=== PATIENT | female | born 1955 | race African-American/Black ===

== ENCOUNTER 2021-08-09 12:12 | Emergency (ER) | payer OTHER, MEDICAID ==
[~2021-08-09] VITALS: Ht 172.7 cm; Wt 73.0 kg
[2021-08-09 12:24] VITALS: BP 152/91
[2021-08-09 13:25] LABS: CHLORIDE 110 mEq/L (98-107)
[2021-08-09 13:26] LABS: BASOPHILS % 1.3 % (0.0-2.0); EOSINOPHILS % 1.1 % (0.0-5.0); HEMATOCRIT. 42.5 % (36.0-48.0); HEMOGLOBIN. 13.9 g/dL (12.0-16.0); LYMPHOCYTES % 38.7 % (20.0-50.0); MEAN CORPUSCULAR HEMOGLOBIN 26.6 pg (28.0-32.0); MEAN CORPUSCULAR VOLUME 81.2 fL (81.0-99.0); MEAN PLATELET VOLUME 8.9 fl (7.4-10.4); MONOCYTES % 5.4 % (2.0-8.0); NEUTROPHILS % 53.5 % (40.0-76.0); PLATELET 215 x1000/uL (130-400); RED BLOOD CELL COUNT 5.23 mill/uL (4.2-5.4); RED CELL DISTRIBUTION WIDTH 17.1 % (11.6-14.6)
[2021-08-09 13:31] LABS: ETHANOL BLOOD < 10 mg/dL
== END 2021-08-09 19:46 | disposition left against medical advice (07) ==
LOC: ER 12:12
DX: R51.9 Headache, unspecified (principal); R42 Dizziness and giddiness; I10 Essential (primary) hypertension
CPT/HCPCS: 36415; 80048; 80320; 85025; 99283; G0480

== ENCOUNTER 2022-11-09 20:51 | Inpatient (IN) | payer OTHER, MEDICAID ==
[~2022-11-09] VITALS: Ht 165.1 cm; Wt 71.7 kg
[2022-11-09] MEDS ORDERED: MORPHINE SULFATE 4 MG/ML CPJ (NOT FOR IM USE) IV STA (21:18)
[2022-11-10] VITALS (47 sets, daily range): BP systolic 90–168; BP diastolic 43–88; PULSE 58–85; RESP 12–20; TEMP 97.2–97.8
[2022-11-10] MEDS ORDERED: MORPHINE SULFATE 4 MG/ML CPJ (NOT FOR IM USE) IV ONE (02:15)
[2022-11-10] MEDS ORDERED: MORPHINE SULFATE 4 MG/ML CPJ (NOT FOR IM USE) IV NR (02:15)
[2022-11-10 02:43] LABS: CHLORIDE 113 mEq/L (98-107); INDEX HEMOLYSI 1 (1-3); INDEX ICTERIC 1 (1-4); INDEX LIPEMIC 1 (1-3); POTASSIUM 4.1 mEq/L (3.5-5.1); SODIUM 139 mEq/L (136-145)
[2022-11-10] MEDS ORDERED: LEVETIRACETAM 500MG PREMIX 100 ML IV ONE (02:45)
[2022-11-10 02:53] LABS: ALANINE AMINOTRANSFERASE 41 IU/L (13-61); ALBUMIN 3.2 g/dL (3.4-5.0); ASPARTATE AMINOTRANSFERASE 26 IU/L (15-37); BILIRUBIN TOTAL 0.2 mg/dL (0.1-1.0); CALCIUM 8.4 mg/dL (8.5-10.1); CARBON DIOXIDE 22 mEq/L (21-32); GLUCOSE 166 mg/dL (70-105); PROTEIN TOTAL 7.4 g/dL (6.0-8.3); TROPONIN I HIGH SENSITIVITY 7 ng/L (<54); UREA NITROGEN BLOOD 28 mg/dL (7-21)
[2022-11-10 05:36] LABS: CLARITY URINE CLOUDY (CLEAR); COLOR URINE YELLOW (YELLOW); GLUCOSE URINE NEGATIVE (NEGATIVE); KETONES URINE NEGATIVE (NEGATIVE); LEUKOCYTE ESTERASE URINE 2+ (NEGATIVE); NITRITE URINE POSITIVE (NEGATIVE); OCCULT BLOOD URINE NEGATIVE (NEGATIVE); PH URINE 7.5 (4.5-8.0); PROTEIN URINE 2+ (NEGATIVE); SPECIFIC GRAVITY URINE 1.018 (1.005-1.030)
[2022-11-10 05:37] LABS: SQUAMOUS EPITHELIAL CELL URINE NONE SEEN /lpf (RARE/1+); YEAST URINE NONE SEEN
[2022-11-10 06:14] LABS: PROTHROMBIN TIME 10.4 sec (9.6-11.0)
[2022-11-10 08:18] LABS: WBC URINE 0-2 /hpf (0-2)
[2022-11-10 08:19] LABS: BACTERIA URINE 4+; RBC URINE NONE SEEN /hpf (0-2)
[2022-11-10 08:35] LABS: BASOPHILS % 1.1 % (0.0-2.0); EOSINOPHILS % 0.3 % (0.0-5.0); HEMOGLOBIN. 10.3 g/dL (12.0-16.0); LYMPHOCYTES % 22.7 % (20.0-50.0); MEAN CORPUSCULAR HEMOGLOBIN 25.7 pg (28.0-32.0); MEAN CORPUSCULAR HGB CONC 32.1 g/dL (31.0-37.0); MEAN CORPUSCULAR VOLUME 80.1 fL (81.0-99.0); MEAN PLATELET VOLUME 8.9 fl (7.4-10.4); MONOCYTES % 7.4 % (2.0-8.0); NEUTROPHILS % 68.5 % (40.0-76.0); PLATELET 252 x1000/uL (130-400); RED CELL DISTRIBUTION WIDTH 16.1 % (11.6-14.6)
[2022-11-10 08:46] LABS: WHITE BLOOD COUNT 8.4 x1000/uL (4.5-11.0)
[2022-11-10] MEDS ORDERED: NALOXONE HCL 0.4MG/ML VIAL IV PRN (10:00)
[2022-11-10] MEDS: LEVETIRACETAM 500MG PREMIX 100 ML IV SCH ×2 (11:05→20:13)
[2022-11-10] MEDS ORDERED: CEFTRIAXONE 1GM PREMIX 50 ML IV SCH (15:15)
[2022-11-10] MEDS: HYDRALAZINE 20MG/ML VIAL IV PRN (15:41)
[2022-11-10] MEDS: AMLODIPINE 5MG TABLET PO SCH (15:41)
[2022-11-10] MEDS ORDERED: LEVOFLOXACIN 500MG PREMIX 100 ML IV NR (17:00)
[2022-11-10 17:39] LABS: HEPATITIS B SURFACE ANTIGEN NEGATIVE
[2022-11-10 18:54] LABS: *AMPHETAMINES SCREEN URINE NEGATIVE (NEGATIVE); *BARBITURATES SCREEN URINE NEGATIVE (NEGATIVE); *BENZODIAZEPINES SCREEN URINE NEGATIVE (NEGATIVE); *COCAINE SCREEN URINE NEGATIVE (NEGATIVE); CANNABINOID URINE SCREEN PRESUMTIVE POSITIVE (NEGATIVE); ECSTASY MDMA SCREEN URINE NEGATIVE (NEGATIVE); METHADONE URINE SCREEN NEGATIVE (NEGATIVE); OPIATES URINE SCREEN PRESUMTIVE POSITIVE (NEGATIVE); PHENCYCLIDINE URINE SCREEN NEGATIVE (NEGATIVE)
[2022-11-10 19:26] LABS: HEPATITIS C VIR.AB 0.11 INDEXVAL (0.00-0.80)
[2022-11-10] MEDS: MORPHINE SULFATE 2 MG/ML CPJ (NOT FOR IM USE) IV PRN (19:44)
[2022-11-11] VITALS (65 sets, daily range): BP systolic 106–154; BP diastolic 46–93; PULSE 69–94; RESP 12–20; TEMP 97.2–99.2
[2022-11-11 05:24] LABS: BASOPHILS % 0.9 % (0.0-2.0); DIFFERENTIAL COMMENT 0; EOSINOPHILS % 1.4 % (0.0-5.0); HEMATOCRIT. 29.1 % (36.0-48.0); HEMOGLOBIN. 9.6 g/dL (12.0-16.0); MEAN CORPUSCULAR HEMOGLOBIN 26.1 pg (28.0-32.0); MEAN CORPUSCULAR HGB CONC 32.9 g/dL (31.0-37.0); MEAN CORPUSCULAR VOLUME 79.2 fL (81.0-99.0); MEAN PLATELET VOLUME 9.2 fl (7.4-10.4); MONOCYTES % 7.1 % (2.0-8.0); NEUTROPHILS % 54.6 % (40.0-76.0); PLATELET 237 x1000/uL (130-400); RED BLOOD CELL COUNT 3.67 mill/uL (4.2-5.4); RED CELL DISTRIBUTION WIDTH 16.6 % (11.6-14.6); WHITE BLOOD COUNT 7.1 x1000/uL (4.5-11.0)
[2022-11-11 05:28] LABS: CHLORIDE 114 mEq/L (98-107); INDEX HEMOLYSI 1 (1-3); INDEX ICTERIC 1 (1-4); INDEX LIPEMIC 1 (1-3); POTASSIUM 3.7 mEq/L (3.5-5.1); SODIUM 141 mEq/L (136-145)
[2022-11-11 05:41] LABS: CALCIUM 8.6 mg/dL (8.5-10.1); CARBON DIOXIDE 23 mEq/L (21-32); GLUCOSE 104 mg/dL (70-105); UREA NITROGEN BLOOD 22 mg/dL (7-21)
[2022-11-11] MEDS: LEVETIRACETAM 500MG PREMIX 100 ML IV SCH ×2 (09:26→21:19)
[2022-11-11] MEDS: AMLODIPINE 5MG TABLET PO SCH (09:27)
[2022-11-11] MEDS ORDERED: CLOP-31 MT (14:56)
[2022-11-11] MEDS ORDERED: ASPI-1406 MT (14:57)
[2022-11-11] MEDS: HYDRALAZINE 20MG/ML VIAL IV PRN (15:50)
[2022-11-11] MEDS: LEVOFLOXACIN 250MG PREMIX 50 ML IV SCH (16:08)
[2022-11-11] MEDS ORDERED: ESCI10TA MT (16:56)
[2022-11-11] MEDS ORDERED: FAMO20TA8 MT (16:57)
[2022-11-11] MEDS ORDERED: LOSA50TA41 PO (16:58)
[2022-11-11] MEDS ORDERED: ATOR-2 MT (17:01)
[2022-11-11] MEDS ORDERED: LORA10CA MT (17:03)
[2022-11-11] MEDS ORDERED: ACETAMINOPHEN 325MG TABLET PO PRN (17:15)
[2022-11-12] VITALS (7 sets, daily range): BP systolic 115–150; BP diastolic 46–94; PULSE 88–91; RESP 18–20; TEMP 98–98.9
[2022-11-12] MEDS: LEVETIRACETAM 500MG PREMIX 100 ML IV SCH ×2 (08:35→21:01)
[2022-11-12] MEDS: AMLODIPINE 5MG TABLET PO SCH (08:44)
[2022-11-12 12:52] LABS: BASOPHILS % 0.8 % (0.0-2.0); DIFFERENTIAL COMMENT 0; EOSINOPHILS % 0.9 % (0.0-5.0); HEMATOCRIT. 30.7 % (36.0-48.0); LYMPHOCYTES % 27.4 % (20.0-50.0); MEAN CORPUSCULAR HEMOGLOBIN 25.7 pg (28.0-32.0); MEAN CORPUSCULAR HGB CONC 32.6 g/dL (31.0-37.0); MEAN CORPUSCULAR VOLUME 78.7 fL (81.0-99.0); MONOCYTES % 8.1 % (2.0-8.0); NEUTROPHILS % 62.8 % (40.0-76.0); PLATELET 267 x1000/uL (130-400); RED BLOOD CELL COUNT 3.89 mill/uL (4.2-5.4); RED CELL DISTRIBUTION WIDTH 16.9 % (11.6-14.6); WHITE BLOOD COUNT 7.5 x1000/uL (4.5-11.0)
[2022-11-12 13:02] LABS: CHLORIDE 111 mEq/L (98-107); INDEX HEMOLYSI 1 (1-3); INDEX ICTERIC 1 (1-4); INDEX LIPEMIC 1 (1-3); POTASSIUM 3.7 mEq/L (3.5-5.1); SODIUM 137 mEq/L (136-145)
[2022-11-12 13:11] LABS: CALCIUM 8.9 mg/dL (8.5-10.1); CARBON DIOXIDE 25 mEq/L (21-32); CREATININE 0.9 mg/dL (0.6-1.3); GLUCOSE 118 mg/dL (70-105); UREA NITROGEN BLOOD 18 mg/dL (7-21)
[2022-11-12] MEDS: LEVOFLOXACIN 250MG PREMIX 50 ML IV SCH (17:56)
[2022-11-12] MEDS: HYDRALAZINE HCL 25MG TABLET PO SCH (20:32)
[2022-11-13] VITALS: BP 140/78; PULSE 86; RESP 20; TEMP 98.1
[2022-11-13 04:00] VITALS: BP 149/63; PULSE 89; RESP 20; TEMP 97.9
[2022-11-13 08:00] VITALS: BP 153/84; PULSE 82; RESP 18; TEMP 97.6
[2022-11-13] MEDS: LEVETIRACETAM 500MG PREMIX 100 ML IV SCH ×2 (08:20→20:32)
[2022-11-13] MEDS: HYDRALAZINE HCL 25MG TABLET PO SCH (08:34)
[2022-11-13] MEDS: AMLODIPINE 5MG TABLET PO SCH (08:34)
[2022-11-13] MEDS: HYDRALAZINE HCL 50MG TABLET PO SCH ×3 (09:30→20:31)
[2022-11-13 12:00] VITALS: BP 130/78; PULSE 94; RESP 18; TEMP 97.2
[2022-11-13 12:34] LABS: DIFFERENTIAL COMMENT 0; EOSINOPHILS % 1.1 % (0.0-5.0); HEMATOCRIT. 32.7 % (36.0-48.0); HEMOGLOBIN. 10.7 g/dL (12.0-16.0); LYMPHOCYTES % 27.4 % (20.0-50.0); MEAN CORPUSCULAR HEMOGLOBIN 25.7 pg (28.0-32.0); MEAN CORPUSCULAR HGB CONC 32.7 g/dL (31.0-37.0); MEAN CORPUSCULAR VOLUME 78.5 fL (81.0-99.0); MEAN PLATELET VOLUME 8.7 fl (7.4-10.4); MONOCYTES % 7.7 % (2.0-8.0); NEUTROPHILS % 62.8 % (40.0-76.0); PLATELET 292 x1000/uL (130-400); RED BLOOD CELL COUNT 4.17 mill/uL (4.2-5.4); RED CELL DISTRIBUTION WIDTH 16.6 % (11.6-14.6); WHITE BLOOD COUNT 6.9 x1000/uL (4.5-11.0)
[2022-11-13 12:58] LABS: CHLORIDE 110 mEq/L (98-107); INDEX HEMOLYSI 1 (1-3); INDEX ICTERIC 1 (1-4); INDEX LIPEMIC 1 (1-3); SODIUM 137 mEq/L (136-145)
[2022-11-13 13:04] LABS: CALCIUM 8.9 mg/dL (8.5-10.1); CARBON DIOXIDE 23 mEq/L (21-32); CREATININE 0.9 mg/dL (0.6-1.3); GLUCOSE 103 mg/dL (70-105); UREA NITROGEN BLOOD 18 mg/dL (7-21)
[2022-11-13 16:00] VITALS: BP 121/61; PULSE 87; RESP 18; TEMP 97.8
[2022-11-13] MEDS: LEVOFLOXACIN 250MG PREMIX 50 ML IV SCH (16:14)
[2022-11-13 20:00] VITALS: BP 107/73; PULSE 99; RESP 18; TEMP 98.1
[2022-11-14] VITALS: BP 110/73; PULSE 87; RESP 18; TEMP 98
[2022-11-14 04:00] VITALS: BP 121/76; PULSE 85; RESP 18; TEMP 97.7
[2022-11-14] MEDS: HYDRALAZINE HCL 50MG TABLET PO SCH ×3 (05:32→20:38)
[2022-11-14 08:00] VITALS: BP 132/72; PULSE 70; RESP 18; TEMP 96.5
[2022-11-14] MEDS: AMLODIPINE 10MG TABLET PO SCH (09:07)
[2022-11-14] MEDS: LEVETIRACETAM 500MG PREMIX 100 ML IV SCH ×2 (09:08→20:38)
[2022-11-14] MEDS: MORPHINE SULFATE 2 MG/ML CPJ (NOT FOR IM USE) IV PRN ×2 (09:10→20:39)
[2022-11-14 12:00] VITALS: BP 132/74; PULSE 81; RESP 18; TEMP 97.2
[2022-11-14 16:00] VITALS: BP 124/74; PULSE 87; RESP 18; TEMP 97.8
[2022-11-14] MEDS ORDERED: LEVOFLOXACIN 250MG TABLET PO SCH (17:00)
[2022-11-14 20:55] VITALS: BP 134/74; PULSE 91; RESP 20; TEMP 98.6
[2022-11-15] VITALS (7 sets, daily range): BP systolic 99–149; BP diastolic 47–93; PULSE 70–91; RESP 18–20; TEMP 97.6–98.9; O2SAT 98
[2022-11-15] MEDS: HYDRALAZINE HCL 50MG TABLET PO SCH ×2 (05:11→13:36)
[2022-11-15] MEDS: LEVETIRACETAM 500MG PREMIX 100 ML IV SCH (08:39)
[2022-11-15] MEDS: AMLODIPINE 10MG TABLET PO SCH (09:00)
[2022-11-15] MEDS ORDERED: CLONIDINE 0.2MG TABLET PO NR (10:15)
[2022-11-15 12:04] LABS: BASOPHILS % 0.7 % (0.0-2.0); DIFFERENTIAL COMMENT 0; EOSINOPHILS % 1.6 % (0.0-5.0); HEMATOCRIT. 28.9 % (36.0-48.0); HEMOGLOBIN. 9.5 g/dL (12.0-16.0); LYMPHOCYTES % 19.4 % (20.0-50.0); MEAN CORPUSCULAR HEMOGLOBIN 26.1 pg (28.0-32.0); MEAN CORPUSCULAR HGB CONC 32.9 g/dL (31.0-37.0); MEAN CORPUSCULAR VOLUME 79.1 fL (81.0-99.0); MEAN PLATELET VOLUME 8.6 fl (7.4-10.4); MONOCYTES % 8.6 % (2.0-8.0); NEUTROPHILS % 69.7 % (40.0-76.0); PLATELET 255 x1000/uL (130-400); RED BLOOD CELL COUNT 3.65 mill/uL (4.2-5.4); RED CELL DISTRIBUTION WIDTH 16.6 % (11.6-14.6); WHITE BLOOD COUNT 7.3 x1000/uL (4.5-11.0)
[2022-11-15 12:14] LABS: CALCIUM 8.4 mg/dL (8.5-10.1); CHLORIDE 112 mEq/L (98-107); INDEX HEMOLYSI 1 (1-3); INDEX ICTERIC 1 (1-4); INDEX LIPEMIC 1 (1-3); POTASSIUM 3.8 mEq/L (3.5-5.1); SODIUM 139 mEq/L (136-145)
[2022-11-15 12:18] LABS: CARBON DIOXIDE 24 mEq/L (21-32); CREATININE 0.9 mg/dL (0.6-1.3); GLUCOSE 104 mg/dL (70-105); UREA NITROGEN BLOOD 27 mg/dL (7-21)
[2022-11-15] MEDS ORDERED: AMLO10TA4 MT (17:38)
[2022-11-15] MEDS ORDERED: HYDR-4135 MT (17:39)
[2022-11-15] MEDS ORDERED: KEPP500 MT (17:41)
== END 2022-11-15 18:44 | DRG 562 ==
LOC: ER 20:51 → EDBEDREQ 11-10 03:51 → EDBEDREQTM 11-10 03:51 → ENRESERV 11-10 07:35 → MICUSO 11-10 08:57 → 7WST 11-11 19:18
PROVIDERS: ADMIT Internal Medicine; ATTEND Internal Medicine
PROC: 0PSGXZZ Reposition Left Humeral Shaft, External Approach (ICD-10-PCS; principal; 2022-11-10)
DX: S42.302A Unspecified fracture of shaft of humerus, left arm, initial encounter for closed fracture (principal); S06.5X0A Traumatic subdural hemorrhage without loss of consciousness, initial encounter; S06.6X0A Traumatic subarachnoid hemorrhage without loss of consciousness, initial encounter; N39.0 Urinary tract infection, site not specified; S70.02XA Contusion of left hip, initial encounter; I10 Essential (primary) hypertension; Z79.02 Long term (current) use of antithrombotics/antiplatelets; Z88.0 Allergy status to penicillin; W18.30XA Fall on same level, unspecified, initial encounter; Y93.89 Activity, other specified; Y92.89 Other specified places as the place of occurrence of the external cause; Y99.8 Other external cause status
CPT/HCPCS: 36415; 71045; 72170; 73030; 73060; 73070; 80048; 80053; 80305; 81003; 84484; 85025; 86803; 87077; 87186; 87340; 93005; 93970; 97162; 97166; 97530; 97535; 99285; A4565; A6261; J0360; J1953; J1956; J2270